=== PATIENT | male | born 1980 | race Caucasian/White ===

== ENCOUNTER 2016-12-07 11:31 | Emergency (ER) | payer MEDICAID, OTHER ==
[~2016-12-07] VITALS: Ht 177.8 cm; Wt 77.1 kg
--- NOTE | 2016-12-07 13:27 | ED General ---
General Chief Complaint: Chest Wall/Rib Pain Stated Complaint: RT RIB PAIN Nursing Triage Note: PT CO OF R RIB PAIN FROM LIFTING CHAIR OUT OF BACK OF TRUCK Nursing Sepsis Screen: No Definite Risk Source of Information: Patient Exam Limitations: No Limitations History of Present Illness Time Seen by Provider: 13:10 Initial Comments The patient is a 36-year-old white male who presents with complaints of right rib pain. He reports that he and his family have recently moved to an apartment that was unfurnished. His brother had located a chair which he offered for free. The patient reports that he lifted it up into the truck and leaned over the side wall. There was a loud pop on the right parasternal area and some pain. He was able to work Monday and Monday but with increasing pain. Today he was unable to tolerate the pain. He notes that it hurts to take a deep breath. Timing/Duration: 3-4 Days Associated Systoms: Chest Pain Allergies and Home Medications Allergies Coded Allergies: No Known Drug Allergies (Unverified , 12/07/16) Home Medications No Active Prescriptions or Reported Meds Constitutional: see HPI EENTM: no symptoms reported Respiratory: see HPI Gastrointestinal: no symptoms reported Genitourinary: no symptoms reported Musculoskeletal: see HPI Skin: no symptoms reported Psychiatric/Neurological: No Symptoms Reported Hematologic/Lymphatic: No Symptoms Reported Immunological/Allergic: no symptoms reported Past [id number] Hx Patient Social History Alcohol Use: Denies Use Recreational Drug Use: No Smoking Status: Never a Smoker Recent Foreign Travel: No Contact w/Someone Who Travel: No Recent Infectious Disease Expo: No Recent Hopitalizations: No Physical Abuse: No Sexual Abuse: No Surgeries History of Surgeries: No Respiratory History of Respiratory Disorde: No Cardiovascular History of Cardiac Disorders: No Neurological History of Neurological Disord: No Genitourinary History of Genitourinary Disor: No Gastrointestinal History of Gastrointestinal Di: No Musculoskeletal History of Musculoskeletal Dis: No Endocrine History of Endocrine Disorders: No HEENT History of HEENT Disorders: No Cancer History of Cancer: No Psychosocial History of Psychiatric Problem: No Suicide Risk Score: 0 Integumentary History of Skin or Integumenta: No Blood Transfusions History of Blood Disorders: No Physical Exam Vital Signs Vital Sign - Last 12Hours 12/07/16 11:40 Temp 97.4 Pulse 84 Resp 18 B/P (MAP) 137/102 Pulse Ox 96 Capillary Refill : Less Than 3 Seconds General Appearance: Mild Distress Eyes: Bilateral Eye Normal Inspection HEENT: Normal ENT Inspection Neck: Full Range of Motion, Normal Inspection, Non Tender, Supple, Carotid Bruit Cardiovascular: Regular Rate, Rhythm, No Edema, No Gallop, No JVD, No Murmur, Normal Peripheral Pulses Gastrointestinal: Normal Bowel Sounds, No Organomegaly, No Pulsatile Mass, Non Tender, Soft Neurologic/Psychiatric: Alert, Oriented x3, No Motor/Sensory Deficits, Normal Mood/Affect Comments The costochondral margins are palpated bilaterally without provoking any additional pain. Progress/Results/Core Measures Results/Orders My Orders Orders - MEGA ANGLIN MD Ribs/Unilateral With Chest (12/07/16 13:15) Vital Signs/I&O Vital Sign - Last 12Hours 12/07/16 11:40 Temp 97.4 Pulse 84 Resp 18 B/P (MAP) 137/102 Pulse Ox 96 Blood Pressure Mean: 114 Departure Communication (Admissions) Progress Notes 1350 x-rays as red by me show no evidence of fracture or distraction Impression Impression: Primary Impression: Costochondritis, acute Disposition: 01 HOME, SELF-CARE Condition: Stable/Unchanged Departure-Patient Inst. Decision time for Depature: 13:56 Referrals: NO,LOCAL PHYSICIAN (PCP) Primary Care Physician Patient Instructions: Costochondritis (DC) Add. Discharge Instructions: All discharge instructions reviewed with patient and/or family. Voiced understanding. Use Aleve or Advil for pain. Expect that this will improve daily although it may take a week or more for resolution of pain Scripts No Active Prescriptions or Reported Meds MEGA ANGLIN MD Dec 07, 2016 13:27
--- NOTE | 2016-12-07 13:59 | Diagnostic Imaging Report ---
PA view of the chest and three views of the right ribs. INDICATION: Lower right anterior rib pain. FINDINGS: PA chest demonstrate clear right lung. The left hilum demonstrates increased density around the central bronchi and there are minimal linear densities also in the left lung base. This is probably sequelae of prior infection with mild scarring. The heart size is normal. The right rib radiographs demonstrate no fracture. IMPRESSION: Left hilar peribronchial thickening and left basilar linear densities are from likely scarring secondary to prior infection. Dictated by: Dictated on workstation # [id number]
[2016-12-07 14:33] VITALS: BP 137/102
== END 2016-12-07 14:33 | disposition home or self-care (01) ==
LOC: ER 11:35
DX: M94.0 Chondrocostal junction syndrome [Tietze] (principal); X50.0XXA Overexertion from strenuous movement or load, initial encounter
CPT/HCPCS: 71101; 99283